=== PATIENT | male | born 1980 | race Caucasian/White ===

== ENCOUNTER 2018-09-24 12:45 | Observation (INO) | payer MEDICAID ==
[2018-09-24] MEDS ORDERED: Sodium Chloride 0.9% 1,000 ML IV ONE ×3 (13:00→16:17)
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
[2018-09-24] MEDS: Nitroglycerin 0.4 MG Tab.SL SL PRN ×2 (13:01→13:06)
[2018-09-24] MEDS ORDERED: Ketorolac 30 MG/ML SDV ONE (13:12)
[2018-09-24] MEDS ORDERED: Ketorolac 30 MG/ML SDV IVPUSH ONE (13:14)
[2018-09-24 13:29] LABS: BLOOD UREA NITROGEN,BUN 15 mg/dL (7.0-18.0); CARBON DIOXIDE,CO2 23.3 mmol/L (21.0-32.0); CHLORIDE,CL 105 mmol/L (98-107); GLUCOSE RANDOM 85 mg/dL (74-106); POTASSIUM,K 3.5 mmol/L (3.5-5.1); SODIUM,NA 141 mmol/L (136-148)
--- NOTE | 2018-09-24 13:47 | CR ---
Indication: Chest pain Technique: Chest 1 view Comparison: None Findings/Impression: Cardiovascular and mediastinum: Heart size and vasculature are normal in caliber and appearance. Mediastinum is within normal limits. Lungs and pleural space: Lungs are clear. No sign of infiltrate or mass. No sign of pleural effusion. No pneumothorax. Bones and soft tissues: No significant findings. Dictated by Alexis Tran MD @ 09/24/2018 1:45:12 PM Dictated by: Alexis Tran MD @ 09/24/2018 13:45:17 (Electronically Signed)
[2018-09-24] MEDS ORDERED: Ondansetron 4 MG/2 ML SDV IVPUSH PRN (15:07)
[2018-09-24] MEDS ORDERED: Acetaminophen 325 MG Tab PO PRN (15:07)
[2018-09-24] MEDS ORDERED: Ondansetron 4 MG Tab.DIS PO PRN (15:07)
[2018-09-24] MEDS ORDERED: Morphine 2 MG/ML Syringe IVPUSH PRN (15:07)
[2018-09-24] MEDS ORDERED: Enoxaparin 40 MG/0.4 ML Syringe SUBCUT SCH (15:15)
--- NOTE | 2018-09-24 16:10 | PCM.HP ---
H&P History of Present Illness - General Date of Service: 09/24/18 Admit Problem/Dx: Admission Diagnosis/Problem Admission Diagnosis/Problem Chest pain - History of Present Illness Initial Comments - Free Text/Narative: 38-year-old male presented to [facility] ER via EMS with complaints of chest pain. He has a PMH of depression and anxiety. Patient reports walking approximately 20 miles this morning from [place] to [place], [place] and experienced sudden substernal chest pain described as being tight and sharp in nature. Has never experienced similar type of chest pain before. The pain was rated as a 8/10 and he also felt nauseous, had tingling in his hands and mouth and felt short of breath. He reports the pain also radiated to his neck and arms. He reports smoking 1 pack per day for the past 15 years. He also reports smoking marijuana daily and methamphetamines last used 2 days ago. He reports no recent illness and was in his normal state of health this morning. Upon arrival to [facility] ER, patient was given nitroglycerin x2 which resolved his chest pain. CXR was negative for any acute processes and troponin and D-dimer were also negative. Patient was admitted for further evaluation. At bedside, patient denied having any chest pain currently, nausea, vomiting, shortness of breath, numbness or tingling in extremities or blood in stool. He does report that his urine has been more dark lately and is "yellow-orange" in color. He denied having any dysuria. Chest Pain Score (Numeric/FACES): 2 - Related Data Allergies/Adverse Reactions: Allergies Allergy/AdvReac Type Severity Reaction Status Date / Time No Known Allergies Allergy Verified 09/24/18 15:46 Home Medications: Home Meds . [No Known Home Meds] 09/24/18 [History] Past Medical History Musculoskeletal History: Reports: Fracture Other Musculoskeletal History: "neck fracture" - Infectious Disease History Infectious Disease History: Reports: None Social & Family History - Family History Family Medical History: Noncontributory - Tobacco Use Smoking Status *Q: Current Every Day Smoker Years of Tobacco use: 20 Packs/Tins Daily: 1 - Caffeine Use Caffeine Use: Reports: None - Recreational Drug Use Recreational Drug Use: Yes Recreational Drug Type: Reports: Marijuana/Hashish Recreational Drug Use Frequency: Daily H&P Review of Systems - Review of Systems: Review Of Systems: ROS reveals no pertinent complaints other than HPI. Exam - Exam Exam: See Below - Vital Signs Vital Signs: Last Vital Signs Temp 97.4 F 09/24/18 15:39 Pulse 85 09/24/18 15:39 Resp 20 09/24/18 15:39 BP 141/70 H 09/24/18 15:39 Pulse Ox 98 09/24/18 15:39 Weight: 160 lb - Exam General: Alert, Oriented, Cooperative HEENT: Conjunctiva Clear, EOMI, Hearing Intact, Mucosa Moist & [place], Normal Nasal Septum, Posterior Pharynx Clear, Pupils Equal, Pupils Reactive, TMs Clear Neck: Supple, Trachea Midline Lungs: Clear to Auscultation, Normal Respiratory Effort Cardiovascular: Regular Rate, Regular Rhythm GI/Abdominal Exam: Normal Bowel Sounds, Soft, Non-Tender, No Distention Extremities: Normal Inspection. No: No Pedal Edema Peripheral Pulses: 2+: Posterior Tibial (L), Posterior Tibial (R) Skin: Warm, Dry, Intact Neurological: Cranial Nerves Intact, Strength Equal Bilateral, Normal Speech, Normal Tone, Sensation Intact Psychiatric: Alert, Normal Affect, Normal Mood - Patient Data Lab Results Last 24 hrs: Laboratory Results - last 24 hr 09/24/18 09/24/18 09/24/18 Range/Units 12:45 12:45 12:45 WBC 14.80 H (4.0-11.0) K/uL RBC 5.23 (4.50-5.90) M/uL Hgb 15.8 (13.0-17.0) g/dL Hct 43.9 (38.0-50.0) % MCV 83.9 (80.0-98.0) fL MCH 30.2 (27.0-32.0) pg MCHC 36.0 (31.0-37.0) g/dL RDW Std Deviation 38.0 (28.0-62.0) fl RDW Coeff of [place] 13 (11.0-15.0) % Plt Count 262 (150-400) K/uL MPV 10.30 (7.40-12.00) fL Neut % (Auto) 77.5 (48.0-80.0) % Lymph % (Auto) 13.6 L (16.0-40.0) % [place] % (Auto) 8.7 (0.0-15.0) % Eos % (Auto) 0.0 (0.0-7.0) % Baso % (Auto) 0.2 (0.0-1.5) % Neut # (Auto) 11.5 H (1.4-5.7) K/uL Lymph # (Auto) 2.0 (0.6-2.4) K/uL [place] # (Auto) 1.3 H (0.0-0.8) K/uL Eos # (Auto) 0.0 (0.0-0.7) K/uL Baso # (Auto) 0.0 (0.0-0.1) K/uL Nucleated RBC % 0.0 /100WBC Nucleated RBCs # 0 K/uL D-Dimer, Quantitative 0.33 (0.0-0.50) mg/L FEU Sodium 141 (136-148) mmol/L Potassium 3.5 (3.5-5.1) mmol/L Chloride 105 (98-107) mmol/L Carbon Dioxide 23.3 (21.0-32.0) mmol/L BUN 15 (7.0-18.0) mg/dL Creatinine 1.2 (0.8-1.3) mg/dL Est Cr Clr Drug Dosing 75.32 mL/min Estimated GFR (MDRD) > 60.0 ml/min Glucose 85 (74-106) mg/dL Calcium 10.3 H (8.5-10.1) mg/dL Total Bilirubin 0.9 (0.2-1.0) mg/dL AST 21 (15-37) IU/L ALT 30 (14-63) IU/L Alkaline Phosphatase 84 (46-116) U/L Troponin I < 0.050 (0.000-0.056) ng/mL Total Protein 8.0 (6.4-8.2) g/dL Albumin 4.1 (3.4-5.0) g/dL Globulin 3.9 (2.6-4.0) g/dL Albumin/Globulin Ratio 1.1 (0.9-1.6) TSH 3rd Generation (0.36-3.74) uIU/mL Urine Color Urine Appearance Urine pH (5.0-8.0) Ur Specific [place] (1.001-1.035) Urine Protein (NEGATIVE) mg/dL Urine Glucose (UA) (NEGATIVE) mg/dL Urine Ketones (NEGATIVE) mg/dL Urine Occult Blood (NEGATIVE) Urine Nitrite (NEGATIVE) Urine Bilirubin (NEGATIVE) Urine Ictotest Urine Urobilinogen (<2.0) EU/dL Ur Leukocyte Esterase (NEGATIVE) Urine RBC (0-2/HPF) Urine WBC (0-5/HPF) Ur Epithelial Cells (NONE-FEW) Urine Bacteria (NEGATIVE) Urine Mucus (NONE-MOD) 09/24/18 09/24/18 Range/Units 12:45 14:03 WBC (4.0-11.0) K/uL RBC (4.50-5.90) M/uL Hgb (13.0-17.0) g/dL Hct (38.0-50.0) % MCV (80.0-98.0) fL MCH (27.0-32.0) pg MCHC (31.0-37.0) g/dL RDW Std Deviation (28.0-62.0) fl RDW Coeff of [place] (11.0-15.0) % Plt Count (150-400) K/uL MPV (7.40-12.00) fL Neut % (Auto) (48.0-80.0) % Lymph % (Auto) (16.0-40.0) % [place] % (Auto) (0.0-15.0) % Eos % (Auto) (0.0-7.0) % Baso % (Auto) (0.0-1.5) % Neut # (Auto) (1.4-5.7) K/uL Lymph # (Auto) (0.6-2.4) K/uL [place] # (Auto) (0.0-0.8) K/uL Eos # (Auto) (0.0-0.7) K/uL Baso # (Auto) (0.0-0.1) K/uL Nucleated RBC % /100WBC Nucleated RBCs # K/uL D-Dimer, Quantitative (0.0-0.50) mg/L FEU Sodium (136-148) mmol/L Potassium (3.5-5.1) mmol/L Chloride (98-107) mmol/L Carbon Dioxide (21.0-32.0) mmol/L BUN (7.0-18.0) mg/dL Creatinine (0.8-1.3) mg/dL Est Cr Clr Drug Dosing mL/min Estimated GFR (MDRD) ml/min Glucose (74-106) mg/dL Calcium (8.5-10.1) mg/dL Total Bilirubin (0.2-1.0) mg/dL AST (15-37) IU/L ALT (14-63) IU/L Alkaline Phosphatase (46-116) U/L Troponin I (0.000-0.056) ng/mL Total Protein (6.4-8.2) g/dL Albumin (3.4-5.0) g/dL Globulin (2.6-4.0) g/dL Albumin/Globulin Ratio (0.9-1.6) TSH 3rd Generation 1.37 (0.36-3.74) uIU/mL Urine Color YELLOW Urine Appearance CLEAR Urine pH 7.5 (5.0-8.0) Ur Specific [place] 1.015 (1.001-1.035) Urine Protein TRACE H (NEGATIVE) mg/dL Urine Glucose (UA) NEGATIVE (NEGATIVE) mg/dL Urine Ketones >=80 (NEGATIVE) mg/dL Urine Occult Blood TRACE-INTACT H (NEGATIVE) Urine Nitrite NEGATIVE (NEGATIVE) Urine Bilirubin SMALL H (NEGATIVE) Urine Ictotest NEGATIVE Urine Urobilinogen 2.0 H (<2.0) EU/dL Ur Leukocyte Esterase NEGATIVE (NEGATIVE) Urine RBC 1-3 (0-2/HPF) Urine WBC 2-4 (0-5/HPF) Ur Epithelial Cells RARE (NONE-FEW) Urine Bacteria FEW (NEGATIVE) Urine Mucus LIGHT (NONE-MOD) Result Diagrams: 09/24/18 12:45 09/24/18 12:45 Problem List Initiated/Reviewed/Updated: Yes Orders Last 24hrs: Active Orders 24 hr Category Date Time Status Admission Status [Patient Status] [ADT] Stat ADT 09/24/18 14:28 Active EKG 12 Lead [EKG Documentation Completion] [RC] STAT Care 09/24/18 14:38 Active EKG Documentation Completion [RC] STAT Care 09/24/18 12:47 Active Oxygen Therapy [RC] PRN Care 09/24/18 15:07 Active Telemetry Monitoring [Cardiac Monitoring] [RC] . Care 09/24/18 14:44 Active DIRECTED Up ad Aide [RC] ASDIRECTED Care 09/24/18 15:07 Active VTE/DVT Education [RC] PER UNIT ROUTINE Care 09/24/18 15:07 Active Vital Signs [RC] Q4H Care 09/24/18 15:07 Active Regular Diet [DIET] Diet 09/24/18 Lunch Active BASIC METABOLIC PANEL,BMP [CHEM] AM Lab 09/25/18 05:11 Ordered CBC WITH AUTO DIFF [HEME] AM Lab 09/25/18 05:11 Ordered DRUG SCREEN, URINE [URCHEM] Urgent Lab 09/24/18 14:03 Received TROPONIN I [CHEM] Q6H Lab 09/24/18 19:00 Ordered TROPONIN I [CHEM] Q6H Lab 09/25/18 01:00 Ordered Acetaminophen [Tylenol] Med 09/24/18 15:07 Active 650 mg PO Q4H PRN Enoxaparin [Lovenox] Med 09/24/18 15:15 Active 40 mg SUBCUT Q24H Morphine Med 09/24/18 15:07 Active 2 mg IVPUSH Q2H PRN Nitroglycerin [Nitrostat] Med 09/24/18 12:56 Active 0.4 mg SL Q5M PRN Ondansetron [Zofran ODT] Med 09/24/18 15:07 Active 4 mg PO Q4H PRN Ondansetron [Zofran] Med 09/24/18 15:07 Active 4 mg IVPUSH Q4H PRN Resuscitation Status Routine Resus Stat 09/24/18 15:07 Ordered Medication Orders Acetaminophen (Tylenol) 650 mg PO Q4H PRN PRN Reason: Pain (Mild 1-3)/fever Enoxaparin Sodium (Lovenox) 40 mg SUBCUT Q24H [facility] Last Admin: 09/24/18 15:55 Dose: 40 mg Morphine Sulfate (Morphine) 2 mg IVPUSH Q2H PRN PRN Reason: Pain (severe 7-10) Stop: 09/25/18 15:08 Nitroglycerin (Nitrostat) 0.4 mg SL Q5M PRN PRN Reason: Chest Pain Last Admin: 09/24/18 13:06 Dose: 0.4 mg Admin: 09/24/18 13:01 Dose: 0.4 mg Ondansetron HCl (Zofran Odt) 4 mg PO Q4H PRN PRN Reason: nausea, able to take PO Ondansetron HCl (Zofran) 4 mg IVPUSH Q4H PRN PRN Reason: Nausea Assessment/Plan Comment:: Assessment: 1. Atypical chest pain. 2. History of substance abuse. 3. Past medical history of depression and anxiety. Plan: 1. For atypical chest pain, initial troponin and d-dimer were negative. EKG showed sinus tachycardia. CXR was negative. Will trend troponins q6h, order TSH and continue to monitor for any recurrence of chest pain. Patient will be on telemetry. 2. For history of substance abuse, will order UDS. Last reported use of methamphetamines was 2 days ago.
== END 2018-09-24 20:30 | disposition left against medical advice (07) ==
LOC: MW.ED 12:45 → MW.MS 15:04
PROVIDERS: ADMIT Internal Medicine; ATTEND Internal Medicine
DX: R07.89 Other chest pain (principal); F17.200 Nicotine dependence, unspecified, uncomplicated
CPT/HCPCS: 36415; 71045; 80053; 80305; 81001; 84443; 84484; 85025; 85379; 93005; 96361; 96372; 96374; 96375; 99285; A9270; G0378; J1650; J1885; J2360; J7040; 99284